=== PATIENT | male | born 1965 | race Caucasian/White ===

== ENCOUNTER 2024-04-22 19:42 | Emergency (ER) | payer SELFPAY ==
[~2024-04-22] VITALS: Ht 175.3 cm; Wt 103.1 kg
[2024-04-22 19:47] VITALS: BP 155/96; PULSE 92; RESP 16; TEMP 98.4; O2SAT 99
[2024-04-22] MEDS ORDERED: TETRACAINE 0.5% OPHTH DROPS 4ML BOTHEYE ONE (20:15)
[2024-04-22] MEDS ORDERED: FLUORESCEIN SODIUM 1MG/STRIP BOTHEYE ONE (20:15)
== END 2024-04-22 21:15 | disposition left against medical advice (07) ==
LOC: ER 19:42
DX: H57.13 Ocular pain, bilateral (principal)
CPT/HCPCS: 99281